=== PATIENT | male | born 1965 | race African-American/Black ===

== ENCOUNTER 2016-11-18 08:36 | Emergency (ER) | payer BC ==
[2016-11-18 08:49] VITALS: BP 146/87
--- NOTE | 2016-11-18 09:46 | RAD ---
INDICATION: Right elbow pain since traumatic injury 1 day earlier COMPARISON: None. TECHNIQUE: 4 views right elbow. REPORT: The visualized bones of the right elbow are well corticated and properly aligned. There is no radiographically apparent fracture or dislocation. There is a tiny amount of posterior joint fluid elevating the posterior fat pad. IMPRESSION: Small, questionable posterior joint effusion could be seen in the setting of occult fracture or soft tissue injury. If the patient's symptoms persist further follow-up imaging is recommended.
--- NOTE | 2016-11-18 13:18 | UC ---
Ion Collins Salem, scribed for Ferny Forte MD on 11/18/16 at 1019 . Elbow Pain - HPI Summary HPI Summary: Patient is a 51 y/o male who presents to the with a right elbow injury since yesterday. He reports no other sx and pain is not aggravated or alleviated by anything. - History of Current Complaint Chief Complaint: UCUpperExtremity Stated Complaint: ELBOW INJURY Time Seen by Provider: 11/18/16 08:59 Hx Obtained From: Patient Onset/Duration: Days Severity Initially: Moderate Severity Currently: Moderate Pain Intensity: 3 Pain Scale Used: 0-10 Numeric Aggravating Factor(s): Nothing Alleviating Factor(s): Nothing - Allergies/Home Medications Allergies/Adverse Reactions: Allergies Allergy/AdvReac Type Severity Reaction Status Date / Time Penicillins [PCN] Allergy Hives/Diff. Verified 08/22/15 08:21 Breathing/I tching Home Medications: Home Medications Aspirin TAB* [Aspirin 325 MG TAB*] 11/18/16 [History] PMH/Surg Hx/FS Hx/Imm Hx Endocrine History Of: Denies: Diabetes GI/ History Of: Reports: Kidney Stones - Surgical History Surgical History: None - Family History Known Family History: Positive: Hypertension Negative: Diabetes - Social History Alcohol Use: None Substance Use Type: None Smoking Status (MU): Never Smoked Tobacco Review of Systems Constitutional: Negative Musculoskeletal: Other: - Right elbow injury. All Other Systems Reviewed And Are Negative: Yes Physical Exam Triage Information Reviewed: Yes Appearance: Well-Appearing, No Pain Distress Vital Signs: Initial Vital Signs Temp 98.5 F 11/18/16 08:44 Pulse 90 11/18/16 08:44 Resp 16 11/18/16 08:44 BP 146/87 11/18/16 08:44 Pulse Ox 96 11/18/16 08:44 Vital Signs Reviewed: Yes ENT: Positive: Other: - MMM. Neck: Positive: Supple, Nontender, No Lymphadenopathy Respiratory: Positive: Lungs clear. Negative: Wheezing Cardiovascular: Positive: RRR, No Murmur, Other: - No rubs or gallops. Abdomen Description: Positive: Nontender, No Organomegaly, Soft Musculoskeletal: Positive: No Edema, Other: - Full extension of right elbow. Able to flex to 100 degrees. Olecranon tenderness. No epicondyle tenderness. Full strength supination and proration. Neurological: Positive: Alert Psychological: Positive: Age Appropriate Behavior Diagnostics - Radiology ELBOW XRAY Radiology Interpretation Completed By: Radiologist - IMPRESSION: Small, questionable posterior joint effusion could be seen in the setting of occult fracture or soft tissue injury. If the patient's symptoms persist further follow-up imaging is recommended. Elbow Pain Course/Dx - Course Course Of Treatment: Right elbow contusion. No fracture on X-Ray. Limited ROM but full strength. - Differential Dx/Diagnosis Differential Diagnosis/HQI/PQRI: Abrasion, Bursitis, Contusion, Foreign Body, Fracture (Closed), Fracture (Open), Joint Effusion, Sprain, Strain Provider Diagnoses: Right elbow contusion. Discharge - Discharge Plan Condition: Stable Disposition: HOME Patient Education Materials: Muscle Strain (ED), Musculoskeletal Pain (ED) Forms: *Work Release Referrals: Xavier Arguelles MD [Primary Care Provider] - If Needed Additional Instructions: Follow up with PCP. The documentation as recorded by the Ion harvey Salem accurately reflects the service I personally performed and the decisions made by Jann chávez Farzad, MD.
== END 2016-11-18 09:38 | disposition home or self-care (01) ==
LOC: UCEAST 08:36
DX: S50.01XA Contusion of right elbow, initial encounter (principal); X58.XXXA Exposure to other specified factors, initial encounter; Y93.9 Activity, unspecified; Y92.9 Unspecified place or not applicable; R03.0 Elevated blood-pressure reading, without diagnosis of hypertension; Z88.0 Allergy status to penicillin
CPT/HCPCS: 99211; G0463

== ENCOUNTER 2017-11-11 07:58 | Emergency (ER) | payer BC ==
[2017-11-11] MEDS ORDERED: NS 0.9% 1000 ML* 1,000 ML IV ONE (08:12)
[2017-11-11 08:34] LABS: ABS Basophils 0.1 10^3/ul (0-0.2); ABS Eosinophils 0.2 10^3/ul (0-0.6); ABS Lymphocytes 2.2 10^3/ul (1.0-4.8); ABS Monocytes 0.6 10^3/ul (0-0.8); ABS Neutrophils 4.2 10^3/ul (1.5-7.7); ABS Nucleated RBC 0 10^3/ul; Eosinophil % 2.1 % (0-6); Hematocrit 45 % (42-52); Hemoglobin 15.1 g/dl (14.0-18.0); Lymphocyte % 30.4 % (25-47); Mean Corpuscular HGB Conc 34 g/dl (31-36); Mean Corpuscular Hemoglobin 29 pg (27-31); Mean Corpuscular Volume 87 fL (80-94); Mean Platelet Volume 9 um3 (7.4-10.4); Nucleated Red Blood Cells % 0; Platelet Count 227 10^3/ul (150-450); Red Blood Count 5.15 10^6/ul (4.0-5.4); Red Cell Distribution Width 13 % (10.5-15); White Blood Count 7.2 10^3/ul (3.5-10.8)
[2017-11-11 08:42] LABS: Urine Appearance Cloudy; Urine Blood 3+ (Negative); Urine Color Yellow; Urine Ketones Trace (Negative); Urine Protein 2+(100 mg/dL) (Negative); Urine Specific Gravity 1.033 (1.010-1.030); Urine Urobilinogen Negative (Negative)
[2017-11-11 08:47] LABS: EGFR Non-African American 77.3 (>60)
--- NOTE | 2017-11-11 09:00 | RAD ---
INDICATION: Abdominal pain. COMPARISON: Comparison is made with a prior CT of the abdomen and pelvis from October 23, 2017. TECHNIQUE: Supine and upright views of the abdomen were obtained. FINDINGS: The small bowel and colon appear nondistended. No free intraperitoneal air is seen. The previously noted renal and ureteral calculi are not visualized on this x-ray study. IMPRESSION: 1. NO EVIDENCE FOR OBSTRUCTION. 2. THE PREVIOUSLY NOTED CALCULI ARE NOT VISUALIZED ON THIS X-RAY STUDY.
[2017-11-11 10:49] VITALS: BP 120/68
--- NOTE | 2017-11-11 15:58 | ED ---
Vinay Collins Thomas, scribed for Darrian Skinner MD on 11/11/17 at 0807 . GI/ HPI - HPI Summary HPI Summary: The patient is a 52 year old male with a history of kidney stones complaining of difficulty urinating and dark since this morning. Two weeks ago, the patient had right-sided flank pain. In the emergency department, the patient denies pain but does report lower abdominal pressure rated 3/10. - History of Current Complaint Chief Complaint: EDUrogenitalProblems Stated Complaint: POSSIBLE KIDNEY STONE Hx Obtained From: Patient Onset/Duration: Still Present Severity: Moderate Current Severity: Moderate Pain Intensity: 3 Pain Characteristics: Pressure Associated Signs and Symptoms: Positive: Other: - Difficulty urinating, dark urine Alleviating Factor(s): Nothing - Allergy/Home Medications Allergies/Adverse Reactions: Allergies Allergy/AdvReac Type Severity Reaction Status Date / Time Penicillins Allergy Hives/Diff. Verified 10/31/17 10:52 Breathing/I tching PMH/Surg Hx/FS Hx/Imm Hx Endocrine/Hematology History: Denies: Hx Diabetes History: Reports: Hx Kidney Stones Infectious Disease History: No Infectious Disease History: Denies: Traveled Outside the [place] in Last 30 Days - Family History Known Family History: Positive: Hypertension Negative: Diabetes - Social History Alcohol Use: None Substance Use Type: Reports: None Smoking Status (MU): Never Smoked Tobacco Review of Systems Negative: Fever Positive: other - Difficulty urinating, dark urine, lower abdominal pressure All Other Systems Reviewed And Are Negative: Yes Physical Exam - Summary Physical Exam Summary: VITAL SIGNS: Reviewed. GENERAL: Patient is a well-developed and nourished male who is lying comfortable in the stretcher. Patient is not in any acute respiratory distress. HEAD AND FACE: No signs of trauma. No ecchymosis, hematomas or skull depressions. No sinus tenderness. EYES: PERRLA, EOMI x 2, No injected conjunctiva, no nystagmus. EARS: Hearing grossly intact. Ear canals and tympanic membranes are within normal limits. MOUTH: Oropharynx within normal limits. NECK: Supple, trachea is midline, no adenopathy, no JVD, no carotid bruit, no c- spine tenderness, neck with full ROM. CHEST: Symmetric, no tenderness at palpation LUNGS: Clear to auscultation bilaterally. No wheezing or crackles. CVS: Regular rate and rhythm, S1 and S2 present, no murmurs or gallops appreciated. ABDOMEN: Soft, non-tender. No signs of distention. No rebound no guarding, and no masses palpated. Bowel sounds are normal. EXTREMITIES: FROM in all major joints, no edema, no cyanosis or clubbing. NEURO: Alert and oriented x 3. No acute neurological deficits. Speech is normal and follows commands. SKIN: Dry and warm Triage Information Reviewed: Yes Vital Signs On Initial Exam: Initial Vitals Temp Pulse Resp BP Pulse Ox 97.9 F 95 18 129/94 97 11/11/17 08:00 11/11/17 08:00 11/11/17 08:00 11/11/17 08:00 11/11/17 08:00 Vital Signs Reviewed: Yes Diagnostics - Vital Signs Vital Signs Temp Pulse Resp BP Pulse Ox 11/11/17 08:00 97.9 F 95 18 129/94 97 - Laboratory Result Diagrams: 11/11/17 08:20 11/11/17 08:20 Lab Statement: Any lab studies that have been ordered have been reviewed, and results considered in the medical decision making process. - Radiology XR Abdomen Xray Interpretation: No Acute Changes - 1. NO EVIDENCE FOR OBSTRUCTION. 2. THE PREVIOUSLY NOTED CALCULI ARE NOT VISUALIZED ON THIS X-RAY STUDY. Dr. Skinner has reviewed this report. Radiology Interpretation Completed By: Radiologist MARISOL Course/Dx - Course Assessment/Plan: The patient is a 52 year old male with a history of kidney stones complaining of difficulty urinating and dark since this morning. Two weeks ago, the patient had right-sided flank pain. In the emergency department, the patient denies pain but does report lower abdominal pressure rated 3/10. Test results are without significant abnormalities. Urinalysis is positive for ketones and blood. In the ED course, the patient was given IV fluids. He did not require any pain medication. He continues to be asymptomatic. Therefore, the patient will be discharged home to follow up with primary care. The patient is hemodynamically stable and alert and oriented x3. The patient will also follow up with Dr. Ro tomorrow at his scheduled appointment. - Diagnoses Provider Diagnoses: Kidney stone, Painless hematuria Discharge - Discharge Plan Condition: Stable Disposition: HOME Patient Education Materials: Kidney Stones (ED), Hematuria (ED) Referrals: Juan Ro MD [Medical Doctor] - 1 Day Additional Instructions: Follow up with Dr. Ro at your appointment tomorrow. Return to the emergency department for any new or worsening symptoms. The documentation as recorded by the Vinay harvey Thomas accurately reflects the service I personally performed and the decisions made by , Darrian Skinner MD.
== END 2017-11-11 10:47 | disposition home or self-care (01) ==
LOC: ED 07:58
DX: N20.0 Calculus of kidney (principal); R31.9 Hematuria, unspecified; R10.9 Unspecified abdominal pain
CPT/HCPCS: 36415; 74019; 80053; 81003; 81015; 83690; 85025; 86140; 87086; 99282